=== PATIENT | female | born 1995 | race Caucasian/White ===

== ENCOUNTER 2017-01-30 14:42 | Emergency (ER) | payer OTHER ==
[2017-01-30 14:49] VITALS: BP 144/76
--- NOTE | 2017-01-30 15:52 | XRAY Preliminary Report ---
Exam: XR Finger(s) LT IMPRESSION: Normal digit radiography. [facility] SITE ID: [id number]
--- NOTE | 2017-01-30 15:55 | XRAY Report ---
EXAM: LEFT THIRD DIGIT RADIOGRAPHY EXAM DATE: 01/30/2017 03:45 PM. CLINICAL HISTORY: Injury. COMPARISON: None. TECHNIQUE: 3 views. FINDINGS: Bones: Normal. No fracture or bone lesion. Joints: Normal. No subluxations. Soft Tissues: Normal. No soft tissue swelling. IMPRESSION: Normal digit radiography. [facility] Referring Provider Line: [phone] SITE ID: [id number]
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
== END 2017-01-30 16:25 | disposition home or self-care (01) ==
LOC: ED 14:42
DX: S60.032A Contusion of left middle finger without damage to nail, initial encounter (principal); W22.8XXA Striking against or struck by other objects, initial encounter
CPT/HCPCS: 73140; 99282

== ENCOUNTER 2017-04-20 15:29 | Emergency (ER) | payer OTHER ==
[2017-04-20 15:39] VITALS: BP 116/73
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
--- NOTE | 2017-04-20 16:41 | XRAY Preliminary Report ---
Exam: XR Cervical Spine 2 View IMPRESSION: 1. Minor levoconvex curvature, question positional. 2. Otherwise unremarkable. No fracture. [facility] SITE ID: [id number]
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
== END 2017-04-20 17:13 | disposition home or self-care (01) ==
LOC: ED 15:29
DX: S13.9XXA Sprain of joints and ligaments of unspecified parts of neck, initial encounter (principal); V89.2XXA Person injured in unspecified motor-vehicle accident, traffic, initial encounter; Y92.488 Other paved roadways as the place of occurrence of the external cause
CPT/HCPCS: 72040; 99283

== ENCOUNTER 2017-05-05 17:26 | Emergency (ER) | payer OTHER ==
[2017-05-05 19:40] LABS: UA w/ MICROSCOPIC CHARGE YES
[2017-05-05 19:42] LABS: BILIRUBIN,URINE NEGATIVE (NEGATIVE); HCG UR QUAL NEGATIVE
[2017-05-05 19:50] LABS: WBC,URINE 0-3 /HPF (0-5)
[2017-05-05 19:51] LABS: UR CULTURE IF IND NOT INDICATED
[2017-05-05] MEDS ORDERED: SODIUM CHLORIDE 0.9% 1,000 ML IV ONE (20:30)
[2017-05-05] MEDS ORDERED: LOPERAMIDE 2 MG CAPSULE PO STA (20:30)
[2017-05-05] MEDS ORDERED: KETOROLAC 30 MG/ML VIAL IVP STA (20:30)
[2017-05-05] MEDS ORDERED: LACTATED RINGERS 1,000 ML IV STA (20:30)
[2017-05-05] MEDS ORDERED: ONDANSETRON 4 MG/2 ML VIAL IVP STA (20:31)
--- NOTE | 2017-05-05 20:31 | ED Physician Documentation ---
PD HPI ABD PAIN - Stated complaint Stated Complaint: N/V/D/CHILLS - Chief complaint Chief Complaint: Abd Pain - History obtained from History obtained from: Patient - History of Present Illness Timing - onset: Other (She started vomiting early this morning and has vomited several times and then a few hours later developed diarrhea and a backache. She says the nausea is her worse symptoms. She also has chills but no abdominal pain. Her son was sick briefly with the vomiting episode a few days ago. There was no recent travel.) Review of Systems Constitutional: reports: Chills, Fatigue. 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 - Present Medications Home Medications: Ambulatory Orders Medication Instructions Recorded Confirmed Loperamide [Imodium] 2 mg PO QID PRN #10 capsule 05/05/17 Ondansetron HCl [Zofran] 4 mg PO Q6H PRN #10 tablet 05/05/17 - Allergies Allergies/Adverse Reactions: Allergies Allergy/AdvReac Type Severity Reaction Status Date / Time No Known Drug Allergies Allergy Verified 05/05/17 17:57 - Social History Does the pt smoke?: No Smoking Status: Never smoker Does the pt drink ETOH?: Yes Does the pt have substance abuse?: No - Immunizations Immunizations are current?: Yes PD ED PE NORMAL - Vitals Vital signs reviewed: Yes (Tachycardic) - General General: Alert and oriented X 3, No acute distress - HEENT HEENT: Pharynx benign, Other (Dry mucous membranes) - Neck Neck: Supple, no meningeal sign, No bony TTP - Cardiac Cardiac: RRR, No murmur - Respiratory Respiratory: No respiratory distress, Clear bilaterally - Abdomen Abdomen: Normal bowel sounds, Soft, Non tender - Back Back: No spinal TTP - Extremities Extremities: Other (The patient has equal and normal Achilles and patellar reflexes bilaterally. Normal sensation in all areas of the legs. Patient denies saddle anesthesia. Normal strength in flexion-extension at the ankles, knees, and flexion of the hips.) - Neuro Neuro: Alert and oriented X 3, Normal speech - Psych Psych: Normal mood, Normal affect Results - Vitals Vitals: Vital Signs - 24 hr 05/05/17 17:44 Temperature 36.8 C Heart Rate 110 H Respiratory 16 Rate Blood Pressure 130/76 O2 Saturation 99 Oxygen O2 Source Room air - Labs Labs: Laboratory Tests 05/05/17 05/05/17 19:26 20:47 Sodium 137 Potassium 3.8 Chloride 103 Carbon Dioxide 23 Anion Gap 11.0 BUN 16 Creatinine 0.7 Estimated GFR (MDRD) 106 Glucose 113 H Calcium 9.4 Total Bilirubin 0.8 AST 18 ALT 14 Alkaline Phosphatase 79 Total Protein 7.7 Albumin 4.9 Globulin 2.8 Albumin/Globulin Ratio 1.8 Lipase 22 Urine Color YELLOW Urine Clarity CLEAR Urine pH 6.0 Ur Specific [place] >=1.030 H Urine Protein TRACE Urine Glucose (UA) NEGATIVE Urine Ketones 40 H Urine Occult Blood SMALL H Urine Nitrite NEGATIVE Urine Bilirubin NEGATIVE Urine Urobilinogen 0.2 (NORMAL) Ur Leukocyte Esterase NEGATIVE Urine RBC 6-10 H Urine WBC 0-3 Ur Squamous Epith Cells MANY Squamous H Urine Bacteria Few Urine Mucus Marked Strands Ur Microscopic Review INDICATED Urine Culture Comments NOT INDICATED Urine HCG, Qual NEGATIVE PD MEDICAL DECISION MAKING - ED course ED course: 22-year-old woman with what sounds like gastroenteritis, benign exam but a predominant complaint back pain but no findings there. She is hemodynamically stable and felt much better after medications here. Departure - Departure Disposition: 01 Home, Self Care Clinical Impression: Gastroenteritis, Dehydration Back pain Qualifiers: Back pain location: low back pain Chronicity: acute Back pain laterality: bilateral Sciatica presence: without sciatica Qualified Code(s): M54.5 - Low back pain Condition: Good Record reviewed to determine appropriate education?: Yes Instructions: ED Gastroenteritis Viral Prescriptions: Loperamide [Imodium] 2 mg PO QID PRN #10 capsule PRN Reason: Diarrhea Ondansetron HCl [Zofran] 4 mg PO Q6H PRN #10 tablet PRN Reason: Nausea / Vomiting Comments: Return in 12-24 hours if not better, anytime if worse or if new symptoms develop.
[2017-05-05] MEDS ORDERED: LOPERAMIDE 2 MG CAPSULE PO ONE (21:02)
[2017-05-05] MEDS ORDERED: KETOROLAC 30 MG/ML VIAL ONE (21:03)
[2017-05-05] MEDS ORDERED: ONDANSETRON 4 MG/2 ML VIAL ONE (21:03)
[2017-05-05 21:15] LABS: ALBUMIN/GLOBULIN RATIO 1.8 (1.0-2.2); BILIRUBIN,TOTAL 0.8 mg/dL (0.2-1.0); CALCIUM 9.4 mg/dL (8.5-10.3); CREATININE 0.7 mg/dL (0.4-1.0); POTASSIUM 3.8 mmol/L (3.5-5.0); TOTAL PROTEIN 7.7 g/dL (6.7-8.2)
[2017-05-05] MEDS ORDERED: MORPHINE 2 MG/ML SYRINGE IVP STA (21:31)
[2017-05-05] MEDS ORDERED: HYDROcod/ACET 5/325 Prepack 6 PO STA (21:39)
[2017-05-05] MEDS ORDERED: ONDANSETRON ODT 4 MG Prepack 2 TL STA (21:39)
[2017-05-05] MEDS ORDERED: ONDANSETRON ODT 4 MG Prepack 2 TL ONE (21:46)
[2017-05-05] MEDS ORDERED: HYDROcod/ACET 5/325 Prepack 6 PO ONE (21:46)
[2017-05-05] MEDS ORDERED: MORPHINE 2 MG/ML SYRINGE ONE (21:46)
[2017-05-05 21:52] VITALS: BP 112/62
== END 2017-05-05 22:03 | disposition home or self-care (01) ==
LOC: ED 17:26
DX: E86.0 Dehydration (principal); K52.9 Noninfective gastroenteritis and colitis, unspecified; M54.5 Low back pain
CPT/HCPCS: 36415; 80053; 81001; 81025; 83690; 96374; 96375; 99283; 99284; A9270; J2270; J7120; 81003; 87086